=== PATIENT | female | born 1975 | race Caucasian/White ===

== ENCOUNTER 2016-08-28 20:03 | Emergency (ER) | payer OTHER ==
[~2016-08-28] VITALS: Ht 154.9 cm; Wt 52.2 kg
[~2016-08-28 20:03] MED LIST: ACET300T52 PO; ALEV220C2 PO; GABA-282 PO; XANA1TAB2 PO; ZANA2CAP PO
[2016-08-28] MEDS ORDERED: METHY10TA PO (20:45)
[2016-08-28] MEDS ORDERED: ZOLP10TA2 PO (20:45)
[2016-08-28] MEDS ORDERED: VALA500T PO (20:45)
[2016-08-28] MEDS ORDERED: NS 1,000 ML IV ONE (22:30)
[2016-08-28 22:59] LABS: BASO % 0.4 % (0.0-1.0); EOS # 0.2 K/mm3 (0.0-0.50); EOS % 2.1 % (0.0-3.0); LARGE UNSTAINED CELL # 0.2 K/mm3 (0.0-0.4); LYMPH # 3.2 K/mm3 (1.5-4.5); LYMPH % 36.4 % (24.0-44.0); MEAN CORPUSCULAR HEMOGLOBIN 30.1 pg (27.0-33.0); MEAN CORPUSCULAR HGB CONC 32.7 g/dl (32.0-36.5); MEAN CORPUSCULAR VOLUME 92.1 fl (80.0-96.0); MONO # 0.5 K/mm3 (0.0-0.8); MONO % 5.5 % (0.0-5.0); NEUTROPHILS # 4.5 K/mm3 (1.8-7.7); NEUTROPHILS % 53.7 % (36.0-66.0); PLATELET COUNT, AUTOMATED 271 k/mm3 (150-450); RED CELL DISTRIBUTION WIDTH 12.5 % (11.5-14.5); WHITE BLOOD COUNT 8.4 K/mm3 (4.0-10.0)
[2016-08-28 23:16] LABS: CONTROL LINE HCG INT CTR LINE PRESENT
[2016-08-28 23:20] LABS: MAGNESIUM LEVEL 2.2 MG/DL (1.8-2.4)
[2016-08-28 23:26] LABS: ALBUMIN 4.1 GM/DL (3.2-5.2); ALBUMIN/GLOBULIN RATIO 1.41 (1.00-1.93); ALKALINE PHOSPHATASE 47 U/L (45-117); ALT/SGPT 26 U/L (12-78); ANION GAP 6 MEQ/L (8-16); AST/SGOT 20 U/L (15-37); BILIRUBIN,DIRECT < 0.1 MG/DL (0.0-0.2); BILIRUBIN,TOTAL 0.3 MG/DL (0.2-1.0); BLOOD UREA NITROGEN 20 MG/DL (7-18); CALCIUM LEVEL 8.7 MG/DL (8.5-10.1); CARBON DIOXIDE LEVEL 26 MEQ/L (21-32); CHLORIDE LEVEL 108 MEQ/L (98-107); CREATININE FOR GFR 0.67 MG/DL (0.55-1.02); GLOMERULAR FILTRATION RATE > 60.0 (>58); GLUCOSE, FASTING 92 MG/DL (70-105); POTASSIUM SERUM 3.8 MEQ/L (3.5-5.1); SODIUM LEVEL 140 MEQ/L (136-145)
[2016-08-29 00:11] VITALS: BP 126/85
[2016-08-29 00:21] LABS: METHADONE URINE NEGATIVE (NEGATIVE)
--- NOTE | 2016-08-29 08:12 | REP ---
Portable chest, single AP view, patient sitting: Comparison is 06/17/2015. The lung coto are clear. The cardiac size is normal. The rosemary, mediastinum, and bony thorax are unremarkable. Impression: Negative portable chest. Signed by Nathan Sanchez MD 08/29/2016 08:04 A
--- NOTE | 2016-08-30 21:24 | ECGEPIP ---
Stationary ECG Study [facility] - ED Test Date: 2016-08-28 Pat Name: MARYLOU GHOSH Department: Room: - Gender: F Administrative Assistant Receptionist: fritz : 1975 Requested By: LEILA MARTIN Order Number: [id number] Reading MD: Sandra Watson Measurements Intervals [place] Rate: 62 P: 32 VA: 169 QRS: -30 QRSD: 99 T: 43 QT: 416 QTc: 424 Interpretive Statements SINUS RHYTHM BORDERLINE LEFT AXIS DEVIATION LOW VOLTAGE LIMB NO PRIOR FOR COMPARISON Electronically Signed On 08-30-2016 21:24:04 EDT by Sandra Watson
== END 2016-08-29 00:45 | disposition home or self-care (01) ==
LOC: M ED 21:05
DX: R42 Dizziness and giddiness (principal); R11.0 Nausea; G89.29 Other chronic pain; F17.210 Nicotine dependence, cigarettes, uncomplicated; Z82.49 Family history of ischemic heart disease and other diseases of the circulatory system; Z79.899 Other long term (current) drug therapy
CPT/HCPCS: 71010; 80048; 80076; 80306; 81001; 82550; 82553; 83735; 84443; 84703; 85025; 93005; 93041; 99284; G0480

== ENCOUNTER → 2016-08-30 | Outpatient (CLI) | payer OTHER ==
[~2016-08-30] MED LIST changes: +METHY10TA PO; +VALA500T PO; +ZOLP10TA2 PO
[2016-08-30 09:51] LABS: MEAN CORPUSCULAR HEMOGLOBIN 30.9 pg (27.0-33.0); MEAN CORPUSCULAR HGB CONC 33.4 g/dl (32.0-36.5); MEAN CORPUSCULAR VOLUME 92.5 fl (80.0-96.0); RED CELL DISTRIBUTION WIDTH 12.4 % (11.5-14.5); WHITE BLOOD COUNT 6.9 K/mm3 (4.0-10.0)
[2016-08-30 10:34] LABS: ALBUMIN 4.6 GM/DL (3.2-5.2); ALBUMIN/GLOBULIN RATIO 1.39 (1.00-1.93); ALKALINE PHOSPHATASE 47 U/L (45-117); ALT/SGPT 26 U/L (12-78); ANION GAP 7 MEQ/L (8-16); AST/SGOT 20 U/L (15-37); BILIRUBIN,TOTAL 0.4 MG/DL (0.2-1.0); BLOOD UREA NITROGEN 17 MG/DL (7-18); CALCIUM LEVEL 9.1 MG/DL (8.5-10.1); CARBON DIOXIDE LEVEL 26 MEQ/L (21-32); CHLORIDE LEVEL 107 MEQ/L (98-107); CHOLESTEROL LEVEL 217 MG/DL (<200); CREATININE FOR GFR 0.78 MG/DL (0.55-1.02); GLOMERULAR FILTRATION RATE > 60.0 (>58); GLUCOSE, FASTING 98 MG/DL (70-105); MAGNESIUM LEVEL 2.2 MG/DL (1.8-2.4); PERCENT SATURATION 34.8 % (13.2-37.4); SODIUM LEVEL 140 MEQ/L (136-145); THYROXINE (T4) 11.1 UG/DL (4.5-12.0); TOTAL IRON BINDING CAPACITY 336 UG/DL (250-450); TOTAL PROTEIN 7.9 GM/DL (6.4-8.2); TRIGLYCERIDES LEVEL 85 MG/DL (<150)
[2016-08-30 11:16] LABS: VITAMIN B12 LEVEL 411 PG/ML (247-911)
[2016-08-30 11:20] LABS: FOLATE > 24.0 NG/ML (>5.4)
== END ==
LOC: M LAB 08:46
PROVIDERS: ATTEND Family Medicine
DX: D64.9 Anemia, unspecified (principal)

== ENCOUNTER → 2016-09-19 | Outpatient (REF) | payer OTHER | LOC: M SFHCWAGY 09:12 | PROVIDERS: ATTEND Nurse Practitioner Family | DX: Z01.419 Encounter for gynecological examination (general) (routine) without abnormal findings (principal) ==

== ENCOUNTER → 2016-09-19 | Outpatient (CLI) | payer OTHER ==
--- NOTE | 2016-09-19 09:49 | REPMRS ---
Patient History The patient states she had a clinical breast exam in 08/2016. Patient is nulliparous. Family history of prostate cancer in father at age 50. Reductions of both breasts, 2008. Digital Woman Screen Mammo: September 19, 2016 - Exam #: [id number] Bilateral CC and MLO view(s) were taken. Technologist: Praveena Thomason, Technologist Prior study comparison: September 03, 2015, digital woman screen mammo performed at [facility]. August 31, 2014, digital woman screen mammo performed at [facility]. FINDINGS: The breast tissue is heterogeneously dense. This may lower the sensitivity of mammography. There has been no change in the appearance of the mammogram from the prior studies. There is a moderate amount of residual fibroglandular tissue which is fairly symmetric. There is no interval development of dominant mass, areas of architectural distortion, or clustered microcalcification typical of malignancy. ASSESSMENT: BI-RADS/ACR category 1 mammogram. Negative. Recommendation Routine screening mammogram in 1 year (for women over age 40). This mammogram was interpreted with the aid of an FDA-approved computer-aided dectection system. Electronically Signed By: Nathan Sousa MD 09/19/16 0949
== END ==
LOC: M WHC 08:29
PROVIDERS: ATTEND Nurse Practitioner Family
DX: Z12.31 Encounter for screening mammogram for malignant neoplasm of breast (principal)

== ENCOUNTER → 2016-09-25 | Outpatient (REF) | payer OTHER | LOC: M LAB REF 12:21 | PROVIDERS: ATTEND Physician Assistant | DX: N39.0 Urinary tract infection, site not specified (principal) ==

== ENCOUNTER → 2016-12-11 | Outpatient (CLI) | payer OTHER ==
[~2016-12-11] MED LIST changes: -VALA500T PO; +VALA500T2 PO
--- NOTE | 2016-12-11 14:57 | REP ---
CERVICAL SPINE SERIES: Eight views. HISTORY: Strain of muscle. Comparison study January 17, 2016. FINDINGS: The patient is status post ventral discectomy and fusion surgery at C5-6. There is straightening of the normal cervical lordosis. No other malalignment is seen. Vertebral body heights are preserved. Other disc spaces are unremarkable. No subluxation or instability is seen on flexion/extension views. Oblique views are unremarkable. AP and open mouth odontoid views show no abnormality. IMPRESSION: Status post ventral discectomy and fusion surgery C5-6. Otherwise negative. Signed by Roque Coffey MD 12/11/2016 04:25 P
== END ==
LOC: M WUC 13:13
PROVIDERS: ATTEND Physician Assistant
DX: S16.1XXA Strain of muscle, fascia and tendon at neck level, initial encounter (principal); X58.XXXA Exposure to other specified factors, initial encounter; Y92.89 Other specified places as the place of occurrence of the external cause; Y93.89 Activity, other specified; Y99.8 Other external cause status

== ENCOUNTER → 2017-01-23 | Outpatient (REF) | payer OTHER ==
[2017-01-23 16:19] LABS: FOLLICLE STIMULATING HORMONE 7.2 mIU/mL
== END ==
LOC: M SFHCWAGY 15:33
PROVIDERS: ATTEND Nurse Practitioner Family
DX: E28.2 Polycystic ovarian syndrome (principal); L68.0 Hirsutism

== ENCOUNTER → 2017-04-11 | Outpatient (REF) | payer OTHER | LOC: M LABDRAW1 13:22 | PROVIDERS: ATTEND Nurse Practitioner Family | DX: E28.2 Polycystic ovarian syndrome (principal) ==

== ENCOUNTER → 2017-06-08 | Outpatient (REF) | payer OTHER ==
[2017-06-08 18:04] LABS: CHLAMYDIA DNA AMPLIFICATION NEGATIVE (NEGATIVE); GC DNA AMPLIFICATION NEGATIVE (NEGATIVE)
== END ==
LOC: M SFHCWAGY 15:53
DX: Z11.3 Encounter for screening for infections with a predominantly sexual mode of transmission (principal)

== ENCOUNTER → 2017-06-11 | Outpatient (CLI) | payer OTHER | LOC: M WHC 14:26 | DX: Z11.3 Encounter for screening for infections with a predominantly sexual mode of transmission (principal) | CPT/HCPCS: 76830 ==

== ENCOUNTER 2017-08-03 10:29 | Day surgery (SDC) | payer OTHER ==
[2017-08-03] MEDS: NS 1,000 ML IV (10:45)
[2017-08-03] MEDS ORDERED: PROPOFOL 200 MG/20 ML VIAL As Ordered (13:24)
== END 2017-08-03 14:19 | disposition home or self-care (01) ==
LOC: M OPP 14:19
DX: R10.32 Left lower quadrant pain (principal); K59.00 Constipation, unspecified; R19.4 Change in bowel habit; K64.8 Other hemorrhoids; M54.89 Other dorsalgia; M54.2 Cervicalgia; F32.9 Major depressive disorder, single episode, unspecified; F41.9 Anxiety disorder, unspecified; F50.00 Anorexia nervosa, unspecified; R06.83 Snoring; F17.210 Nicotine dependence, cigarettes, uncomplicated; F12.10 Cannabis abuse, uncomplicated; Z79.899 Other long term (current) drug therapy; Z80.42 Family history of malignant neoplasm of prostate
CPT/HCPCS: 45378

== ENCOUNTER → 2017-10-09 | Outpatient (REF) | payer OTHER ==
[2017-10-10 13:43] LABS: CHLAMYDIA DNA AMPLIFICATION NEGATIVE (NEGATIVE); GC DNA AMPLIFICATION NEGATIVE (NEGATIVE)
== END ==
LOC: M SFHCWAGY 11:52
DX: Z11.3 Encounter for screening for infections with a predominantly sexual mode of transmission (principal)

== ENCOUNTER → 2017-10-31 | Outpatient (REF) | payer OTHER, MEDICAID ==
[2017-10-31 19:00] LABS: TOTAL 25(OH) VITAMIN D 41.8 NG/ML (30.0-100.0)
[2017-10-31 19:01] LABS: FOLATE 13.5 NG/ML (>5.4); VITAMIN B12 LEVEL 606 PG/ML (247-911)
[2017-10-31 19:05] LABS: ALBUMIN 4.1 GM/DL (3.2-5.2); ALBUMIN/GLOBULIN RATIO 1.41 (1.00-1.93); ALKALINE PHOSPHATASE 50 U/L (45-117); ALT/SGPT 24 U/L (12-78); ANION GAP 7 MEQ/L (8-16); AST/SGOT 14 U/L (7-37); BILIRUBIN,TOTAL 0.3 MG/DL (0.2-1.0); BLOOD UREA NITROGEN 15 MG/DL (7-18); CALCIUM LEVEL 8.3 MG/DL (8.5-10.1); CARBON DIOXIDE LEVEL 27 MEQ/L (21-32); CHLORIDE LEVEL 106 MEQ/L (98-107); CREATININE FOR GFR 0.92 MG/DL (0.55-1.30); FERRITIN 79 NG/ML (8-252); GLOMERULAR FILTRATION RATE > 60.0 (>58); GLUCOSE, FASTING 181 MG/DL (70-100); IRON (FE) 53 UG/DL (50-170); MAGNESIUM LEVEL 1.9 MG/DL (1.8-2.4); POTASSIUM SERUM 3.6 MEQ/L (3.5-5.1); SODIUM LEVEL 140 MEQ/L (136-145); THYROID STIMULATING HORMONE 0.704 uIU/ML (0.358-3.740)
[2017-11-03 00:08] LABS: TISSUE TRANSGLUTAMINASE IgA <2 U/mL (0-3)
== END ==
LOC: M LAB REF 17:36
DX: R63.0 Anorexia (principal)

== ENCOUNTER → 2018-01-10 | Outpatient (REF) | payer OTHER | LOC: M SFHCWAGY 10:47 | DX: Z12.4 Encounter for screening for malignant neoplasm of cervix (principal) | CPT/HCPCS: 88142 ==

== ENCOUNTER → 2018-09-10 | Outpatient (CLI) | payer OTHER ==
[~2018-09-10] MED LIST changes: +ALEV220T26 PO; +DIAZPOW PO; -GABA-282 PO; +GABA-843 PO; +METH-1022 PO; -METHY10TA PO; -VALA500T2 PO; +VALA500T5 PO
--- NOTE | 2018-09-10 14:46 | REP ---
CERVICAL SPINE, NINE VIEWS: HISTORY: Strain. COMPARISON: 12/11/2016 The cervical spine is visualized from C1-2 to C6-7 level in the lateral radiographs. There is no acute fracture or subluxation. The C4-5 intervertebral disc is decreased in height consistent with disc degeneration. The right neural foramina are patent. The left neural foramina are not well seen. IMPRESSION: The patient is status post C5-6 anterior spinal fusion. There is anatomic alignment. Electronically Signed by Daniel Patton MD 09/10/2018 02:47 P
== END ==
LOC: M WUC 12:37
PROVIDERS: ATTEND Physician Assistant
DX: S16.1XXA Strain of muscle, fascia and tendon at neck level, initial encounter (principal); X58.XXXA Exposure to other specified factors, initial encounter; Y92.89 Other specified places as the place of occurrence of the external cause; Z98.1 Arthrodesis status

== ENCOUNTER → 2018-10-18 | Outpatient (REF) | payer OTHER ==
[2018-10-18 15:05] LABS: CHLAMYDIA DNA AMPLIFICATION NEGATIVE (NEGATIVE); GC DNA AMPLIFICATION NEGATIVE (NEGATIVE)
== END ==
LOC: M SFHCWAGY 12:58
PROVIDERS: ATTEND Nurse Practitioner Family
DX: N73.0 Acute parametritis and pelvic cellulitis (principal)

== ENCOUNTER → 2018-10-28 | Outpatient (CLI) | payer OTHER ==
--- NOTE | 2018-10-29 06:17 | REP ---
Clinical: Pelvic pain and abnormal uterine bleeding . Technique: Transabdominal pelvic ultrasound followed by transvaginal examination for better evaluation of the endometrium and adnexa with color Doppler evaluation of the ovaries. Findings: Bladder is unremarkable and measures 4.2 x 6.7 x 4.4 cm . Normal anteverted uterus measures 8.8 x 3.5 x 4.4 cm . The endometrial complex measures 10.4 mm thickness. No discrete uterine or endometrial abnormalities are appreciated. Bilateral ovaries are normal in appearance and vascularity without evidence for torsion. Right ovary measures 3.4 x 1.8 x 1.5 cm with a 1.1 x 0.7 x 0.6 cm hyperechoic area; R I = 0.49 . Left ovary measures 2.8 x 1.5 x 1.3 cm ; R I = 0.46 . No pelvic fluid or adnexal mass lesion . Impression: 1. Subtle nonspecific hyperechoic area within the right ovary. Consider reevaluation in 4-6 weeks. 2. Otherwise normal pelvic ultrasound.
== END ==
LOC: M WHC 08:53
PROVIDERS: ATTEND Nurse Practitioner Family
DX: R10.2 Pelvic and perineal pain (principal); N93.9 Abnormal uterine and vaginal bleeding, unspecified; N83.8 Other noninflammatory disorders of ovary, fallopian tube and broad ligament

== ENCOUNTER → 2018-12-12 | Outpatient (CLI) | payer OTHER ==
--- NOTE | 2018-12-12 13:05 | REP ---
PELVIC ULTRASOUND: Real-time sonographic evaluation of the pelvis performed utilizing transabdominal and endovaginal technique and compared to multiple prior exams including 10/28/2018, 06/11/2017, and 09/03/2015. Bladder measures 4.9 x 7.3 x 2.4 cm. Uterus measures 8.3 x 3.8 x 5.0 cm. Endometrial thickness is 12 mm. Focal oval hyperechoic area in the endometrial echo complex measures 1.5 x 0.8 x 1.5 cm, with internal blood flow, possibly representing an endometrial polyp. Right ovary measures 3.1 x 1.8 x 1.9 cm with no torsion, resistive index 0.55. Echogenic area in the right ovary measures 9 x 11 x 5 mm unchanged since the 2016 exam. This may represent a small endometrioma. Right ovary is mildly enlarged 4.0 x 2.0 x 2.1 cm. There is a complex heterogeneous cystic structure in the left ovary probably representing a complex dominant follicle 1.8 x 1.7 x 1.9 cm. This is new. There is no torsion of the left ovary with resistive index 0.46. There is no significant free fluid. IMPRESSION: Suspect endometrial polyp 1.5 cm in diameter. Stable echogenic area in the right ovary with maximum diameter of 1.1 cm. This is unchanged since 2016 and may represent a small endometrioma. Complex heterogeneous cystic structure left ovary probably represents a complex dominant follicle, maximum diameter 1.9 cm.
== END ==
LOC: M WHC 10:08
PROVIDERS: ATTEND Nurse Practitioner Family
DX: N83.202 Unspecified ovarian cyst, left side (principal)

== ENCOUNTER → 2019-01-17 | Outpatient (REF) | payer OTHER ==
[2019-01-21 14:29] LABS: HPV HYBRID CAPTURE II Negative (Negative)
== END ==
LOC: M SFHCWAGY 10:42
PROVIDERS: ATTEND Nurse Practitioner Family
DX: Z12.4 Encounter for screening for malignant neoplasm of cervix (principal)

== ENCOUNTER → 2019-01-20 | Outpatient (CLI) | payer OTHER ==
--- NOTE | 2019-01-20 12:10 | REPMRS ---
Patient History The patient states she had a clinical breast exam in 11/2018. Patient is nulliparous. Family history of prostate cancer at age 50 in father. Implants in both breasts, November 09, 2017. Reductions of both breasts, 2007. 3D TOMOSYNTHESIS WAS PERFORMED. The Bibi Mayo lifetime risk for breast cancer is 14.0%. Digital Woman Screen Mammo: January 20, 2019 - Exam #: [id number] Bilateral CC and MLO view(s) were taken. Technologist: Edna Huntley, Technologist Prior study comparison: October 31, 2017, bilateral digital mammo screening bilat, performed at [facility]. September 19, 2016, digital woman screen mammo performed at [facility]. FINDINGS: The breast tissue is heterogeneously dense. This may lower the sensitivity of mammography. There has been no change in the appearance of the mammogram from the prior studies. There is a moderate amount of residual fibroglandular tissue which is fairly symmetric. There is no interval development of dominant mass, areas of architectural distortion, or clustered microcalcification typical of malignancy. Assessment: BI-RADS/ACR category 1 mammogram. Negative Mammogram. Recommendation Routine screening mammogram in 1 year (for women over age 40). This mammogram was interpreted with the aid of an FDA-approved computer-aided dectection system. Electronically Signed By: Nathan Sousa MD 01/20/19 3528
== END ==
LOC: M WHC 10:57
PROVIDERS: ATTEND Nurse Practitioner Family
DX: Z12.31 Encounter for screening mammogram for malignant neoplasm of breast (principal); Z98.82 Breast implant status

== ENCOUNTER → 2019-03-09 | Outpatient (CLI) | payer OTHER ==
[~2019-03-09] MED LIST changes: +EFFE75CA2 PO; +LEXA1TAB PO; +TRAZ-189 PO
[2019-03-09 17:56] LABS: BASO # 0.1 10^3/uL (0.0-0.2); BASO % 0.8 % (0.0-1.0); EOS # 0.1 10^3/uL (0.0-0.5); EOS % 1.8 % (0.0-3.0); HEMATOCRIT 43.5 % (36.0-47.0); HEMOGLOBIN 14.1 g/dl (12.0-15.5); LYMPH # 1.8 10^3/uL (1.5-5.0); LYMPH % 30.2 % (24.0-44.0); MEAN CORPUSCULAR HEMOGLOBIN 32.9 pg (27.0-33.0); MEAN CORPUSCULAR HGB CONC 32.4 g/dl (32.0-36.5); MEAN CORPUSCULAR VOLUME 101.4 fl (80.0-96.0); MONO # 0.5 10^3/uL (0.0-0.8); NEUTROPHILS # 3.5 10^3/uL (1.5-8.5); NEUTROPHILS % 57.9 % (36.0-66.0); PLATELET COUNT, AUTOMATED 259 10^3/uL (150-450); RED BLOOD COUNT 4.29 10^6/uL (4.00-5.40)
[2019-03-09 18:02] LABS: ALBUMIN 3.5 GM/DL (3.2-5.2); ALT/SGPT 24 U/L (12-78); BILIRUBIN,TOTAL 0.2 MG/DL (0.2-1.0); BLOOD UREA NITROGEN 14 MG/DL (7-18); CALCIUM LEVEL 8.1 MG/DL (8.5-10.1); CARBON DIOXIDE LEVEL 28 MEQ/L (21-32); CHLORIDE LEVEL 108 MEQ/L (98-107); CREATININE FOR GFR 0.88 MG/DL (0.55-1.30); GLOMERULAR FILTRATION RATE > 60.0 (>58); GLUCOSE, FASTING 138 MG/DL (70-100); POTASSIUM SERUM 4.1 MEQ/L (3.5-5.1); SODIUM LEVEL 141 MEQ/L (136-145); TOTAL PROTEIN 6.1 GM/DL (6.4-8.2)
== END ==
LOC: M WUC 09:29
PROVIDERS: ATTEND Physician Assistant
DX: R10.814 Left lower quadrant abdominal tenderness (principal)

== ENCOUNTER 2019-03-19 15:12 | Day surgery (SDC) | payer OTHER ==
[~2019-03-19] VITALS: Ht 154.9 cm; Wt 54.9 kg
[~2019-03-19 15:12] MED LIST changes: +LR 1,000 ML IV ONE
[2019-03-19 16:09] LABS: HEMATOCRIT 45.6 % (36.0-47.0); HEMOGLOBIN 15.1 g/dl (12.0-15.5); MEAN CORPUSCULAR HEMOGLOBIN 32.4 pg (27.0-33.0); MEAN CORPUSCULAR HGB CONC 33.1 g/dl (32.0-36.5); MEAN CORPUSCULAR VOLUME 97.9 fl (80.0-96.0); PLATELET COUNT, AUTOMATED 318 10^3/uL (150-450); RED BLOOD COUNT 4.66 10^6/uL (4.00-5.40); WHITE BLOOD COUNT 8.1 10^3/uL (4.0-10.0)
[2019-03-19] MEDS ORDERED: LIDOCAINE 2% INJ 100 MG/5 ML SDV (FOR ANES.) As Ordered ONE (18:01)
[2019-03-19] MEDS ORDERED: dexameTHASONE 4 MG/ML 1ML VIAL (J1100) As Ordered ONE (18:01)
[2019-03-19] MEDS ORDERED: ONDANSETRON 4MG/2ML VIAL (J2405) As Ordered ONE ×2 (18:01→19:40)
[2019-03-19] MEDS ORDERED: PROPOFOL 200 MG/20 ML VIAL As Ordered ONE (18:01)
[2019-03-19] MEDS ORDERED: MIDAZOLAM INJ 2 MG/2 ML VIAL (J2250) As Ordered ONE (18:02)
[2019-03-19] MEDS ORDERED: fentaNYL 100 MCG/2 ML INJECTION (J3010) As Ordered ONE ×2 (18:02→19:40)
[2019-03-19] MEDS ORDERED: KETOROLAC 60 MG/2 ML VIAL (J1885) As Ordered ONE (19:17)
[2019-03-19] MEDS ORDERED: PERCOCET 5MG/325MG TAB As Ordered ONE (19:40)
[2019-03-19] MEDS: PERCOCET 5MG/325MG TAB PO PRN ×2 (19:42→20:14)
[2019-03-19] MEDS: fentaNYL 100 MCG/2 ML INJECTION (J3010) IV PRN ×4 (19:42→20:20)
[2019-03-19] MEDS ORDERED: LR 1,000 ML IV SCH ×2 (20:00→20:15)
[2019-03-19] MEDS ORDERED: METOCLOPRAMIDE INJ 10MG/2ML VIAL (J2765) IV PRN (20:00)
[2019-03-19] MEDS ORDERED: ONDANSETRON 4MG/2ML VIAL (J2405) IV PRN (20:00)
[2019-03-19] MEDS ORDERED: ACETAMINOPHEN 500 MG TAB PO ONE (20:15)
[2019-03-19 20:40] VITALS: BP 134/83
--- NOTE | 2019-03-20 08:58 | RO ---
DATE OF PROCEDURE: 03/19/2019 PREOPERATIVE DIAGNOSIS: Abnormal uterine bleeding, endometrial polyps. POSTOPERATIVE DIAGNOSIS: Abnormal uterine bleeding, endometrial polyps. PROCEDURE: Hysteroscopy, D and C, polypectomy. SURGEON: Dr. Daniel Patricia ANESTHESIA: General endotracheal. ESTIMATED BLOOD LOSS: 50 mL. FINDINGS: Two moderate large endometrial polyps, one attached in the anterior fundus and the other attached in the right lateral lower uterine segment. Otherwise normal appearing endometrial cavity. OPERATIVE SUMMARY: The patient was taken to the operating room where general endotracheal anesthesia was induced. She was prepped and draped in the sterile fashion in the dorsal lithotomy position. Speculum was placed in the vagina. The anterior lip of the cervix was grasped with a tenaculum. The cervix was dilated with taper dilators. Diagnostic hysteroscope using normal saline. Visualization of the endometrial cavity revealed the findings noted above. Forceps were inserted and used to grasp endometrial polyps. The polymorphonuclear leukocytes were removed in their entirely. Sharp curettage was performed. The hysteroscope confirmed that there were no further endometrial irregularities. All instruments were removed and sponge and instruments counts were correct.
== END 2019-03-19 20:55 | disposition home or self-care (01) ==
LOC: M SDC 15:12
PROVIDERS: ATTEND Specialist
DX: N93.9 Abnormal uterine and vaginal bleeding, unspecified (principal); N84.0 Polyp of corpus uteri; F41.9 Anxiety disorder, unspecified; F32.9 Major depressive disorder, single episode, unspecified; F12.10 Cannabis abuse, uncomplicated; F17.218 Nicotine dependence, cigarettes, with other nicotine-induced disorders; Z79.899 Other long term (current) drug therapy
CPT/HCPCS: 36415; 58558; 85027; 88305; J1100; J1885; J2250; J2405; J3010

== ENCOUNTER 2019-08-05 08:58 | Day surgery (SDC) | payer OTHER ==
[~2019-08-05] VITALS: Ht 156.2 cm; Wt 56.6 kg
[~2019-08-05 08:58] MED LIST changes: +IBUP-1022 PO; -LR 1,000 ML IV ONE; +OXYC1TAB23 PO
[2019-08-05 09:27] LABS: HEMATOCRIT 43.5 % (36.0-47.0); HEMOGLOBIN 14.3 g/dl (12.0-15.5); MEAN CORPUSCULAR HEMOGLOBIN 32.2 pg (27.0-33.0); MEAN CORPUSCULAR HGB CONC 32.9 g/dl (32.0-36.5); PLATELET COUNT, AUTOMATED 343 10^3/uL (150-450); RED BLOOD COUNT 4.44 10^6/uL (4.00-5.40); WHITE BLOOD COUNT 6.8 10^3/uL (4.0-10.0)
[2019-08-05] MEDS ORDERED: LIDOCAINE 2% INJ 100 MG/5 ML SDV (FOR ANES.) As Ordered ONE ×2 (09:44→10:46)
[2019-08-05] MEDS ORDERED: dexameTHASONE 4 MG/ML 1ML VIAL (J1100) As Ordered ONE ×2 (09:44→10:46)
[2019-08-05] MEDS ORDERED: ONDANSETRON 4MG/2ML VIAL (J2405) As Ordered ONE ×2 (09:44→10:46)
[2019-08-05] MEDS ORDERED: propofoL 200 MG/20 ML VIAL As Ordered ONE ×2 (09:44→10:46)
[2019-08-05] MEDS ORDERED: KETOROLAC 60 MG/2 ML VIAL (J1885) As Ordered ONE ×2 (09:44→10:46)
[2019-08-05] MEDS ORDERED: ceFAZolin SOD 2 GM in IV 1 EA IV ONE (10:00)
[2019-08-05] MEDS ORDERED: fentaNYL 100 MCG/2 ML INJECTION (J3010) As Ordered ONE ×3 (10:47→12:48)
[2019-08-05] MEDS ORDERED: MIDAZOLAM INJ 2 MG/2 ML VIAL (J2250) As Ordered ONE (10:47)
[2019-08-05] MEDS ORDERED: VASOPRESSIN INJ 20 UNITS/ML VIAL As Ordered ONE (11:13)
[2019-08-05] MEDS ORDERED: ePHEDrine SULFATE 25 MG/5 ML(5MG/ML) SYRINGE As Ordered ONE (11:51)
[2019-08-05] MEDS ORDERED: ROCURONIUM BROMIDE 50 MG/5 ML VIAL As Ordered ONE (11:53)
[2019-08-05] MEDS ORDERED: BUPIVACAINE HCL 0.25% 30 ML VIAL As Ordered ONE (11:59)
[2019-08-05] MEDS ORDERED: ACETAMINOPHEN 1000MG 100ML IV BTL (OFIRMEV) (J0131 PER 10MG) As Ordered ONE (12:08)
[2019-08-05] MEDS ORDERED: SUGAMMADEX SODIUM 500 MG/5 ML VIAL (BRIDION) As Ordered ONE (12:20)
[2019-08-05] MEDS ORDERED: ONDANSETRON 4MG/2ML VIAL (J2405) IV PRN (13:45)
[2019-08-05] MEDS ORDERED: LR 1,000 ML IV SCH (13:45)
[2019-08-05] MEDS ORDERED: fentaNYL 100 MCG/2 ML INJECTION (J3010) IV PRN (13:45)
[2019-08-05] MEDS ORDERED: oxyCODONE 5MG TAB As Ordered ONE (14:13)
[2019-08-05] MEDS ORDERED: oxyCODONE 5MG TAB PO PRN (14:30)
[2019-08-05 16:00] VITALS: BP 112/77
[2019-08-05] MEDS ORDERED: OXYC1TAB23 PO (16:12)
[2019-08-05] MEDS ORDERED: IBUP-1022 PO (16:14)
--- NOTE | 2019-08-06 15:02 | RO ---
DATE OF OPERATION: 08/05/2019 PREOPERATIVE DIAGNOSIS: Vaginal cuff dehiscence. POSTOPERATIVE DIAGNOSIS: Vaginal cuff dehiscence. PROCEDURE: Diagnostic laparoscopy with repair of vaginal cuff dehiscence. SURGEON: Daniel Patricia MD GLUE LINE OPERATOR: ANESTHESIA: General endotracheal. ESTIMATED BLOOD LOSS: 50 mL. URINE OUTPUT: 200 mL. FINDINGS: Complete vaginal cuff dehiscence. Epiploica of the sigmoid colon prolapsing through the vaginal cuff opening. Omental adhesions to the vaginal cuff opening. No evidence of bowel protruding through the dehiscence. DESCRIPTION OF PROCEDURE: Operative summary: Patient taken to the operating room where general endotracheal anesthesia was induced. She was prepped and draped in a sterile fashion in the dorsal lithotomy position. Dan catheter was placed. Speculum was placed in the vagina. A necrotic-appearing mass appeared to be protruding through the vaginal opening. This mass could not be dissected off vaginally. It was unclear if the mass represented bowel or bladder. Cystoscopy was performed using a 7-degree cystoscope, and the bladder appeared normal. Decision made to perform laparoscopy to assess what was protruding through the vaginal opening. Periumbilical incision made with a scalpel. A Veress needle was placed through the incision. Pneumoperitoneum was created. The Veress needle was removed. A 5-mm trocar was placed through this incision using Visiport. A 5-mm scope with camera was used to visualize the pelvis. Two 5-mm suprapubic ports were placed. The patient was placed in Trendelenburg position. Adhesions to the vaginal cuff were taken down sharply using Harmonic scalpel as well as a grasping instrument. The vaginal opening was completely freed. Omental adhesions to the vaginal cuff were taken down sharply. The necrotic mass appearing in the vagina appeared to be epiploica from the sigmoid colon. Colon was examined thoroughly. Dr. Nathan Lawson from general surgery was consulted intraoperatively to give opinion about the bowel. He concurred that it appeared just to be necrotic epiploica and did not need to be removed. As a precaution, a ridged sigmoidoscope was placed in the rectum. Fluid was placed in the pelvis. Air was instilled into the rectum. There was no evidence of perforation to the sigmoid colon. Sigmoidoscope was removed. Pneumoperitoneum was released. All instruments removed. Skin was closed with #4-0 Monocryl. Surgeon then returned to the vagina. Speculum was placed. The anterior-posterior edges of the vagina were grasped with an Allis clamp. #2-0 Vicryl was placed in a running fashion in the vaginal cuff. Vaginal cuff was closed horizontally in its entirety. Good hemostasis was noted. All instruments removed. Sponge, instrument, and needle counts were correct. Patient was extubated and went to recovery room in stable condition.
== END 2019-08-05 16:34 | disposition home or self-care (01) ==
LOC: M SDC 08:58
PROVIDERS: ATTEND Specialist
DX: T81.32XA Disruption of internal operation (surgical) wound, not elsewhere classified, initial encounter (principal); Y76.3 Surgical instruments, materials and obstetric and gynecological devices (including sutures) associated with adverse incidents; E28.2 Polycystic ovarian syndrome; F32.9 Major depressive disorder, single episode, unspecified; F41.9 Anxiety disorder, unspecified; F50.9 Eating disorder, unspecified; F17.210 Nicotine dependence, cigarettes, uncomplicated; Z79.899 Other long term (current) drug therapy
CPT/HCPCS: 36415; 57425; 85027; J0131; J0690; J1100; J1885; J2250; J2405; J3010

== ENCOUNTER → 2019-11-12 | Outpatient (CLI) | payer OTHER ==
[~2019-11-12] MED LIST changes: +GABA-282 PO; -GABA-843 PO
--- NOTE | 2019-11-12 11:43 | REP ---
Right upper quadrant sonography: History: Abdominal pain and bloating. Comparison study: No comparison study. Findings: Scanning through the right upper quadrant of the abdomen demonstrates a normal sized, thin-walled gallbladder without evidence of stone or polyp. Common bile duct is normal measuring 0.5 cm in greatest diameter. No focal liver lesion is seen. Liver size is normal. No pancreatic abnormality is observed. No right renal abnormality is seen. There is no evidence of ascites. The right kidney measures 9.8 x 4.7 x 4 point a cm. Impression: Negative right upper quadrant sonography. Electronically Signed by Roque Coffey MD 11/12/2019 11:35 A
--- NOTE | 2019-11-12 13:47 | REP ---
REASON: Left lower quadrant pain. The latest prior for comparison is 12/12/2018. Since the last exam, the patient has undergone hysterectomy with bilateral ovarian preservation. Transvesical and transvaginal imaging was obtained. The right ovary measures 2.6 x 3.8 x 2 cm. Once again, there is a small echogenic focus seen in the right ovary measuring 1.3 cm in its greatest dimension status quo. This is unchanged and likely benign. Left ovary measures 2.3 x 1.8 x 1.5 cm. There is no significant change from the prior exam. There is a 1.5 cm sized likely resolving hemorrhagic follicle. There is no free fluid. Urinary bladder measures approximately 8 x 8 x 9 cm. IMPRESSION: No significant change from the prior exam other than hysterectomy.
== END ==
LOC: M WHC 08:59
PROVIDERS: ATTEND Family Medicine
DX: R63.0 Anorexia (principal); R10.32 Left lower quadrant pain; R14.0 Abdominal distension (gaseous); Z90.710 Acquired absence of both cervix and uterus

== ENCOUNTER → 2020-05-31 | Outpatient (REF) | payer OTHER ==
[~2020-05-31] MED LIST changes: -GABA-282 PO; +GABA-843 PO
[2020-05-31 17:07] LABS: BLOOD UREA NITROGEN 16 MG/DL (7-18); CALCIUM LEVEL 9.2 MG/DL (8.5-10.1); CARBON DIOXIDE LEVEL 31 MEQ/L (21-32); CHLORIDE LEVEL 109 MEQ/L (98-107); CREATININE FOR GFR 1.01 MG/DL (0.55-1.30); GLOMERULAR FILTRATION RATE > 60.0 (>58); GLUCOSE, FASTING 117 MG/DL (70-100); MAGNESIUM LEVEL 2.1 MG/DL (1.8-2.4); POTASSIUM SERUM 4.5 MEQ/L (3.5-5.1); SODIUM LEVEL 143 MEQ/L (136-145)
== END ==
LOC: M LAB REF 15:46
PROVIDERS: ATTEND Physician Assistant
DX: G25.81 Restless legs syndrome (principal)

== ENCOUNTER → 2020-06-24 | Outpatient (CLI) | payer OTHER ==
[~2020-06-24] MED LIST changes: +GABA-282 PO; -GABA-843 PO
--- NOTE | 2020-06-24 11:30 | REP ---
INDICATION: R21 SUSPICIOUS RASH RT BREAST,S/P BREAST AUGEMENTATION 3 YR. COMPARISON: Comparison mammography 20 January 2019.. TECHNIQUE: Whole breast, right breast sonography. FINDINGS: Scanning in the area the patient's redness in the 9 o'clock position of the right breast shows no focal abnormality. Normal fibroglandular texture is seen superficial to intact augmentation implant margins. However, away from the site of the skin redness, at 4 o'clock position in the right breast, 6 cm from nipple there is a hypoechoic nodule measuring 8 x 15 x 4 mm. It is long axis is parallel to the skin and is immediately superficial to the implant margin. Scanning in the axillary tail region demonstrates normal 9 mm a lymph node. No cortical thickening is seen. No adenopathy noted. IMPRESSION: In the medial aspect of the right breast at the 4 o'clock, there is a hypoechoic solid nodule 1.5 cm in greatest diameter. BI-RADS category 4 suspicious right breast ultrasound findings. No abnormality is noted in the tissue at the area of the skin discoloration at 9 o'clock. Ultrasound-guided needle biopsy of the 4 o'clock lesion should be considered. <Electronically signed by Colton Coffey > 06/24/20 1126
== END ==
LOC: M WHC 08:58
PROVIDERS: ATTEND Physician Assistant
DX: R92.8 Other abnormal and inconclusive findings on diagnostic imaging of breast (principal); R21 Rash and other nonspecific skin eruption; N63.15 Unspecified lump in the right breast, overlapping quadrants

== ENCOUNTER → 2020-06-28 | Outpatient (REF) | payer OTHER ==
[2020-06-28 16:02] LABS: BASO # 0.1 10^3/uL (0.0-0.2); BASO % 0.6 % (0.0-1.0); EOS # 0.1 10^3/uL (0.0-0.5); EOS % 1.3 % (0.0-3.0); HEMATOCRIT 44.6 % (36.0-47.0); HEMOGLOBIN 14.5 g/dl (12.0-15.5); LYMPH # 2.1 10^3/uL (1.5-5.0); MEAN CORPUSCULAR HEMOGLOBIN 32.3 pg (27.0-33.0); MEAN CORPUSCULAR HGB CONC 32.5 g/dl (32.0-36.5); MEAN CORPUSCULAR VOLUME 99.3 fl (80.0-96.0); MONO # 0.6 10^3/uL (0.0-0.8); MONO % 7.6 % (0.0-5.0); NEUTROPHILS # 4.9 10^3/uL (1.5-8.5); NEUTROPHILS % 63.2 % (36.0-66.0); PLATELET COUNT, AUTOMATED 315 10^3/uL (150-450); RED BLOOD COUNT 4.49 10^6/uL (4.00-5.40); WHITE BLOOD COUNT 7.8 10^3/uL (4.0-10.0)
[2020-06-28 16:37] LABS: ALT/SGPT 32 U/L (12-78); BILIRUBIN,TOTAL 0.1 MG/DL (0.2-1.0); BLOOD UREA NITROGEN 19 MG/DL (7-18); CALCIUM LEVEL 8.9 MG/DL (8.5-10.1); CARBON DIOXIDE LEVEL 28 MEQ/L (21-32); CHLORIDE LEVEL 106 MEQ/L (98-107); GLOMERULAR FILTRATION RATE > 60.0 (>58); GLUCOSE, FASTING 109 MG/DL (70-100); MAGNESIUM LEVEL 2.2 MG/DL (1.8-2.4); PHOSPHORUS LEVEL 2.7 MG/DL (2.5-4.9); POTASSIUM SERUM 4.5 MEQ/L (3.5-5.1); SODIUM LEVEL 143 MEQ/L (136-145); TOTAL PROTEIN 6.8 GM/DL (6.4-8.2)
== END ==
LOC: M LAB REF 15:40
PROVIDERS: ATTEND Physician Assistant
DX: F50.00 Anorexia nervosa, unspecified (principal)

== ENCOUNTER → 2020-07-02 | Outpatient (CLI) | payer OTHER ==
--- NOTE | 2020-07-02 16:50 | REPMRS ---
Patient History The patient states she had a clinical breast exam in 06/2020. Patient is nulliparous. Family history of prostate cancer at age 50 in father. Implants in both breasts, November 09, 2017. Reductions of both breasts, 2007. No Hormone Replacement Therapy Indicated problem(s): right breast skin changes to breast for 1 weeks. Patient states she had a rash that is currently going away about a week ago, [place] [facility] u/s Dr. Smith requested bilateral mammogram as well. Diagnostic Bilateral Mammo: July 02, 2020 - Exam #: [id number] Bilateral CC and MLO view(s) were taken. Technologist: Praveena Thomason, Technologist Prior study comparison: January 20, 2019, bilateral digital woman screen mammo performed at [facility]. October 31, 2017, bilateral digital mammo screening bilat, performed at [facility]. FINDINGS: The breast tissue is extremely dense which could obscure a lesion on mammography. The visualized implant margins are smooth. The Volpara volumetric breast density category is: D. Breast parenchymal density pattern is essentially symmetric. No dominant mass, grouped microcalcification, or architectural distortion is evident on either side. 3-D tomosynthesis shows no additional findings. No significant changes when compared with prior studies. Assessment: BI-RADS/ACR category 2 mammogram. Benign Findings. Recommendation Routine screening mammogram of both breasts in 1 year (for women over age 40). This patient's [facility] Lifetime Breast Cancer RIsk is estimated at 13.7 %. This mammogram was interpreted with the aid of an FDA-approved computer-aided dectection system. Electronically Signed By: Colton Coffey MD 07/02/20 [id number]
== END ==
LOC: M WHC 16:05
PROVIDERS: ATTEND Surgery
DX: R92.8 Other abnormal and inconclusive findings on diagnostic imaging of breast (principal); Z98.82 Breast implant status
CPT/HCPCS: 77066; G0279

== ENCOUNTER → 2020-08-25 | Outpatient (CLI) | payer OTHER ==
[~2020-08-25] MED LIST changes: +DICY10CA13 PO; +VITMTA PO
[2020-08-25 14:37] VITALS: BP 120/82
--- NOTE | 2020-08-25 16:45 | REP ---
INDICATION: N63.10 RIGHT BREAST MASS/US GUIDED BX. COMPARISON: 06/24/2020. TECHNIQUE: Real-time sonographic evaluation of right breast performed. FINDINGS: Ultrasound guidance was provided for Dr. Smith who performed ultrasound-guided biopsy of an oval 1.5 cm nodule at the 4 o'clock position. The biopsy needle appears to be within the nodule. IMPRESSION: Ultrasound guidance was provided for Dr. Smith who performed ultrasound-guided biopsy of an oval 1.5 cm nodule at the 4 o'clock position. RECOMMENDATION: Clinical follow-up. <Electronically signed by Nathan Sousa > 08/25/20 0494
--- NOTE | 2020-08-25 16:46 | REP ---
INDICATION: US GUIDED BX/N63.10 R BREAST MASS/CK CLIP PLACEMENT. COMPARISON: 07/02/2020. TECHNIQUE: ML and CC views right breast. FINDINGS: Following ultrasound-guided biopsy of a nodule 4 o'clock right breast, mammographic images show a biopsy clip inferomedially in the right breast. IMPRESSION: Biopsy clip visualized inferomedial right breast. RECOMMENDATION: Clinical follow-up. <Electronically signed by Nathan Sousa > 08/25/20 [id number]
--- NOTE | 2020-08-26 20:06 | ROOPDOC ---
[facility] Report Of Operation Report of Operation DATE OF PROCEDURE: 08/25/20 DIAGNOSIS: right breast suspicious lesion PROCEDURE: ultrasound guided biopsy of the right breast suspicious lesion with clip placement SURGEON: Rhea Pablo BLOOD LOSS: minimal COMPLICATIONS: none Lidocaine 1% LOT [id number] Expiration 04/2021 Sodium Bicarbonate 8.4% LOT [id number] Expiration 06/2021 Hydromark clip LOT [id number] 03/2023 SHAPE : 3 Bx device: TEMNO 18G x 20 cm LOT [id number] Expiration 04/2024 Bx device: BARD [id number] x10 cm LOT [id number] Expiration 05/2021 Informed consent was obtained. The most common risk and possible complications including bleeding, hematoma, bruising, infection, injury to surrounding structures, including implant, were explained to the patient and the patient expressed understanding. Patient was placed on the bed in the supine position. Appropriate time out was done stating patients name, date of , and the procedure to be performed. The right breast was prepped and draped in the usual fashion. The ultrasound was used to confirm the location of the lesion in the right breast at 4:00 anterior to the implant. Plain Lidocaine 1% and 8.4% sodium bicarbonate 10:1 mix was used to anesthetize the skin, the biopsy site and tissues along the anticipated biopsy tract. Small skin incision was made with blade number 11. Temno 18G cannula with introducer was inserted through the incision and advanced under the ultrasound guidance to position immediately adjacent to the suspicious lesion at 4:00 and parallel to the implant to avoid injury. Next, the introduc er was removed and Temno 18G biopsy device was places in the cannula. Pre-biopsy imaging, and post-biopsy imaging were captured. Three attempts were done to biopsy the nodule which appeared dense and did not allow biopsy device to penetrate fully the nodule. At this time decision was made to use the BARD Marquee device. BARD Marquee 14G cannula with introducer ([id number] was inserted through the incision and advanced under the ultrasound guidance to position immediately adjacent to the lesion and parallel to the implant to avoid injury. Next, the introducer was removed and BARD Marquee 14G biopsy device was places in the cannula. Pre-biopsy imaging, and post-biopsy imaging were captured. Two good core biopsies were taken at the nodule. Specimen was placed in formaldehyde, labeled with appropriate biopsy site and patients name, and sent to pathology for evaluation. Next, the biopsy device was withdrawn and a clip introducer was inserted into the biopsy site via the cannula. SHAPE 3 Hydromark clip was deployed under sonographic guidance. Post-clip placement image was captured. Manual pressure over the biopsy cavity and tract was held after the clip introducer was withdrawn. No bleeding was noted upon removal of the pressure. Post-biopsy mammogram of the right breast was obtained and showed clip in expected position. Postprocedural dressing was placed. Patient tolerated procedure well. Discharge instructions were discussed with the patient and the patient expressed understanding. RHEA PABLO DO Aug 26, 2020 20:06
== END ==
LOC: M WHCPRO 08:47
PROVIDERS: ATTEND Surgery
DX: N60.11 Diffuse cystic mastopathy of right breast (principal)

== ENCOUNTER → 2020-10-01 | Outpatient (CLI) | payer OTHER ==
[~2020-10-01] MED LIST changes: +PROHANCE 279.3MG/ML 15ML VIAL As Ordered ONE
--- NOTE | 2020-10-04 08:59 | REP ---
INDICATION: OTH ABN AND INCONCLUSIVE FINDINGS ON DX IMAGING OF BREAST. COMPARISON: Ultrasound 06/24/2020, mammogram 07/02/2020. TECHNIQUE: Three [place] MRI imaging was performed with a dedicated breast coil. Axial, coronal, and sagittal T1 and T2 weighted scans were obtained with and without fat saturation in the usual fashion. The study includes dynamically acquired post gadolinium-enhanced imaging with image subtraction. Maximum intensity projection and multi planar reformation imaging is included as well. This study is interpreted with the aid of ComQi, an FDA approved computer aided detection (CAD) software program, on a dedicated breast MRI workstation. The gadolinium enhancement dose is 11 mL of intravenous ProHance. FINDINGS: There is mild to moderate fibroglandular tissue symmetrically bilaterally. Bilateral breast implants are intact. No significant cystic changes seen in either breast. There is no axillary adenopathy. There is mild background parenchymal enhancement bilaterally. There is a subcentimeter intramammary lymph node in the upper inner left breast. There is a biopsy clip in the medial right breast status post negative ultrasound-guided biopsy in this region. There is no suspicious enhancing mass or morphologic abnormality bilaterally. IMPRESSION: BI-RADS category 2 benign bilateral breast MRI. Bilateral breast implants are intact. Biopsy clip in the medial right breast with no abnormal enhancement in this region. Intramammary lymph node upper inner left breast. No suspicious enhancing mass or morphologic abnormality. <Electronically signed by Nathan Sousa > 10/04/20 0846
== END ==
LOC: M RAD 16:07
PROVIDERS: ATTEND Surgery
DX: R92.8 Other abnormal and inconclusive findings on diagnostic imaging of breast (principal)
CPT/HCPCS: A9576; C8908

== ENCOUNTER → 2021-12-16 | Outpatient (CLI) | payer OTHER ==
[~2021-12-16] MED LIST changes: -PROHANCE 279.3MG/ML 15ML VIAL As Ordered ONE
== END ==
LOC: M WHC 12:39
PROVIDERS: ATTEND Nurse Practitioner Women's Health
DX: R92.8 Other abnormal and inconclusive findings on diagnostic imaging of breast (principal)

== ENCOUNTER → 2022-06-26 | Outpatient (CLI) | payer OTHER | LOC: M WHC 13:22 | PROVIDERS: ATTEND Nurse Practitioner Women's Health | DX: R92.8 Other abnormal and inconclusive findings on diagnostic imaging of breast (principal) ==

== ENCOUNTER → 2022-08-29 | Outpatient (REF) | payer OTHER ==
[2022-08-29 17:47] LABS: ALBUMIN 3.8 G/DL (3.2-5.2); ALKALINE PHOSPHATASE 63 U/L (46-116); ALT/SGPT 24 U/L (7.0-40); AST/SGOT 25 U/L (<34); BILIRUBIN,TOTAL 0.2 MG/DL (0.3-1.2); BLOOD UREA NITROGEN 20 MG/DL (9-23); CALCIUM LEVEL 8.3 MG/DL (8.5-10.1); CARBON DIOXIDE LEVEL 25 MMOL/L (20-31); CHLORIDE LEVEL 105 MMOL/L (98-107); CHOLESTEROL LEVEL 204 MG/DL (<200); CHOLESTEROL RISK RATIO 4.45 (<5); GLOMERULAR FILTRATION RATE > 60.0 (>58); GLUCOSE, FASTING 107 MG/DL (60-100); HDL CHOLESTEROL 45.8 MG/DL (>40); LDL CHOLESTEROL 102.2 MG/DL (<100); NON-HDL-C 158.2 MG/DL; SODIUM LEVEL 138 MMOL/L (136-145); THYROID STIMULATING HORMONE 2.606 uIU/ML (0.55-4.78); TOTAL PROTEIN 6.5 G/DL (5.7-8.2); TRIGLYCERIDES LEVEL 280 MG/DL (<150)
== END ==
LOC: M LAB REF 12:12
PROVIDERS: ATTEND Physician Assistant
DX: E78.5 Hyperlipidemia, unspecified (principal); F41.9 Anxiety disorder, unspecified; Z11.59 Encounter for screening for other viral diseases

== ENCOUNTER → 2022-09-25 | Outpatient (REF) | payer OTHER | LOC: M SFHCDERM 14:55 | PROVIDERS: ATTEND Nurse Practitioner Family | DX: L72.9 Follicular cyst of the skin and subcutaneous tissue, unspecified (principal) ==

== ENCOUNTER → 2023-01-08 | Outpatient (REF) | payer OTHER ==
[~2023-01-08] MED LIST changes: +DICY-61 PO; -DICY10CA13 PO
== END ==
LOC: M SFHCDERM 14:10
PROVIDERS: ATTEND Nurse Practitioner Family
DX: L73.2 Hidradenitis suppurativa (principal)

== ENCOUNTER → 2023-01-31 | Outpatient (REF) | payer OTHER ==
[2023-01-31 13:48] LABS: CALCIUM LEVEL 7.9 MG/DL (8.5-10.1)
[2023-01-31 13:53] LABS: TOTAL 25(OH) VITAMIN D 36.5 NG/ML (20.0-100.0)
== END ==
LOC: M LAB REF 12:31
PROVIDERS: ATTEND Physician Assistant
DX: E83.51 Hypocalcemia (principal)

== ENCOUNTER → 2023-03-19 | Outpatient (CLI) | payer OTHER | LOC: M WHC 10:49 | PROVIDERS: ATTEND Nurse Practitioner Family | DX: Z12.31 Encounter for screening mammogram for malignant neoplasm of breast (principal) ==

== ENCOUNTER → 2023-05-10 | Outpatient (REF) | payer OTHER ==
[2023-05-10 19:10] LABS: ALBUMIN 3.6 G/DL (3.2-5.2); ALKALINE PHOSPHATASE 52 U/L (46-116); ALT/SGPT 18 U/L (7.0-40); AST/SGOT 17 U/L (<34); BILIRUBIN,TOTAL 0.3 MG/DL (0.3-1.2); BLOOD UREA NITROGEN 16 MG/DL (9-23); CALCIUM LEVEL 8.8 MG/DL (8.5-10.1); CARBON DIOXIDE LEVEL 25 MMOL/L (20-31); CHLORIDE LEVEL 107 MMOL/L (98-107); CHOLESTEROL LEVEL 193 MG/DL (<200); CHOLESTEROL RISK RATIO 3.89 (<5); CREATININE FOR GFR 0.73 MG/DL (0.55-1.30); GLOMERULAR FILTRATION RATE > 60.0 (>58); GLUCOSE, FASTING 122 MG/DL (60-100); HDL CHOLESTEROL 49.6 MG/DL (>40); LDL CHOLESTEROL 123.4 MG/DL (<100); MAGNESIUM LEVEL 1.8 MG/DL (1.8-2.4); NON-HDL-C 143.4 MG/DL; PHOSPHORUS LEVEL 2.5 MG/DL (2.5-4.9); POTASSIUM SERUM 4.3 MMOL/L (3.5-5.1); SODIUM LEVEL 139 MMOL/L (136-145); TOTAL PROTEIN 6.3 G/DL (5.7-8.2); TRIGLYCERIDES LEVEL 100 MG/DL (<150)
[2023-05-10 19:13] LABS: TOTAL 25(OH) VITAMIN D 26.8 NG/ML (20.0-100.0)
[2023-05-10 19:14] LABS: PTH INTACT 17.3 PG/ML (18.5-88.0)
== END ==
LOC: M LAB REF 17:49
PROVIDERS: ATTEND Nurse Practitioner Family
DX: E83.51 Hypocalcemia (principal)

== ENCOUNTER → 2023-05-11 | Outpatient (REF) | payer MEDICAID, OTHER, SELFPAY | LOC: M LAB REF 14:29 | PROVIDERS: ATTEND Nurse Practitioner Family | DX: E83.51 Hypocalcemia (principal) ==

== ENCOUNTER → 2023-06-29 | Outpatient (REF) | payer OTHER | LOC: M SFHCWAGY 12:53 | PROVIDERS: ATTEND Nurse Practitioner Family | DX: Z12.4 Encounter for screening for malignant neoplasm of cervix (principal) ==

== ENCOUNTER → 2023-07-27 | Outpatient (CLI) | payer OTHER ==
[2023-07-27 18:16] LABS: PTH INTACT 15.3 PG/ML (18.5-88.0)
[2023-07-27 18:20] LABS: TOTAL 25(OH) VITAMIN D 48.8 NG/ML (20.0-100.0)
== END ==
LOC: M WUC 13:30
PROVIDERS: ATTEND Nurse Practitioner Family
DX: E83.51 Hypocalcemia (principal)

== ENCOUNTER → 2023-08-14 | Outpatient (REF) | payer OTHER ==
[2023-08-14 18:54] LABS: BASO # 0.1 10^3/uL (0.0-0.2); BASO % 0.8 % (0.0-1.0); EOS # 0.2 10^3/uL (0.0-0.5); EOS % 1.9 % (0.0-3.0); HEMATOCRIT 41.1 % (36.0-47.0); LYMPH # 2.6 10^3/uL (1.5-5.0); LYMPH % 27.8 % (24.0-44.0); MEAN CORPUSCULAR HEMOGLOBIN 32.3 pg (27.0-33.0); MEAN CORPUSCULAR HGB CONC 34.1 g/dl (32.0-36.5); MEAN CORPUSCULAR VOLUME 94.7 fl (80.0-96.0); MONO # 1.2 10^3/uL (0.0-0.8); MONO % 12.4 % (2.0-8.0); NEUTROPHILS # 5.1 10^3/uL (1.5-8.5); NEUTROPHILS % 53.7 % (36.0-66.0); PLATELET COUNT, AUTOMATED 302 10^3/uL (150-450); RED BLOOD COUNT 4.34 10^6/uL (4.00-5.40); WHITE BLOOD COUNT 9.5 10^3/uL (4.0-10.0)
[2023-08-14 19:17] LABS: HEMOGLOBIN A1c 5.2 % (4.0-6.0)
[2023-08-14 19:20] LABS: FOLATE > 24.0 NG/ML (>5.4)
[2023-08-14 19:21] LABS: BLOOD UREA NITROGEN 16 MG/DL (9-23); CALCIUM LEVEL 8.6 MG/DL (8.5-10.1); CARBON DIOXIDE LEVEL 26 MMOL/L (20-31); CHLORIDE LEVEL 107 MMOL/L (98-107); CREATININE FOR GFR 0.82 MG/DL (0.55-1.30); GLOMERULAR FILTRATION RATE > 60.0 (>58); GLUCOSE, FASTING 119 MG/DL (60-100); POTASSIUM SERUM 4.3 MMOL/L (3.5-5.1); SODIUM LEVEL 138 MMOL/L (136-145)
[2023-08-14 19:22] LABS: VITAMIN B12 LEVEL 382 PG/ML (211-911)
== END ==
LOC: M LAB REF 16:38
PROVIDERS: ATTEND Physician Assistant
DX: R73.9 Hyperglycemia, unspecified (principal); R63.0 Anorexia

== ENCOUNTER → 2023-08-17 | Outpatient (CLI) | payer OTHER ==
[2023-08-17 14:03] LABS: BASO % 0.5 % (0.0-1.0); EOS % 0.5 % (0.0-3.0); HEMATOCRIT 39.7 % (36.0-47.0); HEMOGLOBIN 13.4 g/dl (12.0-15.5); LYMPH # 1.6 10^3/uL (1.5-5.0); LYMPH % 25.9 % (24.0-44.0); MEAN CORPUSCULAR HGB CONC 33.8 g/dl (32.0-36.5); MEAN CORPUSCULAR VOLUME 94.7 fl (80.0-96.0); MONO # 1.1 10^3/uL (0.0-0.8); NEUTROPHILS # 3.5 10^3/uL (1.5-8.5); NEUTROPHILS % 55.8 % (36.0-66.0); PLATELET COUNT, AUTOMATED 281 10^3/uL (150-450); RED BLOOD COUNT 4.19 10^6/uL (4.00-5.40); WHITE BLOOD COUNT 6.3 10^3/uL (4.0-10.0)
[2023-08-17 14:39] LABS: ALBUMIN 3.6 G/DL (3.2-5.2); ALKALINE PHOSPHATASE 71 U/L (46-116); ALT/SGPT 24 U/L (7.0-40); AST/SGOT 24 U/L (<34); BILIRUBIN,TOTAL < 0.2 MG/DL (0.3-1.2); BLOOD UREA NITROGEN 13 MG/DL (9-23); CALCIUM LEVEL 8.5 MG/DL (8.5-10.1); CARBON DIOXIDE LEVEL 28 MMOL/L (20-31); CHLORIDE LEVEL 103 MMOL/L (98-107); CREATININE FOR GFR 1.08 MG/DL (0.55-1.30); GLOMERULAR FILTRATION RATE 57.4 (>58); GLUCOSE, FASTING 116 MG/DL (60-100); POTASSIUM SERUM 3.8 MMOL/L (3.5-5.1); SODIUM LEVEL 135 MMOL/L (136-145); TOTAL PROTEIN 6.7 G/DL (5.7-8.2)
[2023-08-17 15:07] LABS: HIV 1&2 SCREEN NEGATIVE (NEGATIVE)
[2023-08-17 15:14] LABS: HEPATITIS B CORE ANTIBODY IGM NEGATIVE (NEGATIVE); HEPATITIS C VIRUS ABY INDEX < 0.02 INDEX (<0.8)
== END ==
LOC: M WUC 12:06
PROVIDERS: ATTEND Nurse Practitioner Family
DX: L72.9 Follicular cyst of the skin and subcutaneous tissue, unspecified (principal); L73.2 Hidradenitis suppurativa

== ENCOUNTER → 2023-09-28 | Outpatient (REF) | payer OTHER | LOC: M LAB REF 17:17 | PROVIDERS: ATTEND Nurse Practitioner Family | DX: R59.0 Localized enlarged lymph nodes (principal) ==

== ENCOUNTER → 2024-02-12 | Outpatient (REF) | payer OTHER ==
[2024-02-12 19:41] LABS: TOTAL IRON BINDING CAPACITY 301 UG/DL (250-425)
[2024-02-12 19:42] LABS: ALBUMIN 3.9 G/DL (3.2-5.2); ALKALINE PHOSPHATASE 57 U/L (46-116); ALT/SGPT 21 U/L (7.0-40); AST/SGOT 17 U/L (<34); BILIRUBIN,TOTAL 0.2 MG/DL (0.3-1.2); BLOOD UREA NITROGEN 23 MG/DL (9-23); CALCIUM LEVEL 9.2 MG/DL (8.5-10.1); CARBON DIOXIDE LEVEL 26 MMOL/L (20-31); CHLORIDE LEVEL 110 MMOL/L (98-107); CHOLESTEROL LEVEL 260 MG/DL (<200); CHOLESTEROL RISK RATIO 6.28 (<5); CREATININE FOR GFR 0.86 MG/DL (0.55-1.30); GLOMERULAR FILTRATION RATE > 60.0 (>58); GLUCOSE, FASTING 108 MG/DL (60-100); HDL CHOLESTEROL 41.4 MG/DL (>40); LDL CHOLESTEROL 176.4 MG/DL (<100); NON-HDL-C 218.6 MG/DL; POTASSIUM SERUM 3.7 MMOL/L (3.5-5.1); SODIUM LEVEL 140 MMOL/L (136-145); TOTAL PROTEIN 6.9 G/DL (5.7-8.2); TRIGLYCERIDES LEVEL 211 MG/DL (<150)
[2024-02-12 19:43] LABS: IRON (FE) 72 UG/DL (50-170); PERCENT SATURATION 23.9 % (13.2-45.0)
[2024-02-12 19:44] LABS: FERRITIN 108.7 NG/ML (7.3-270.7)
[2024-02-12 19:45] LABS: BASO % 0.7 % (0.0-1.0); EOS # 0.2 10^3/uL (0.0-0.5); EOS % 2.5 % (0.0-3.0); FOLATE 19.53 NG/ML (>5.4); HEMATOCRIT 40.9 % (36.0-47.0); HEMOGLOBIN 13.7 g/dl (12.0-15.5); LYMPH # 2.4 10^3/uL (1.5-5.0); LYMPH % 40.1 % (24.0-44.0); MEAN CORPUSCULAR HEMOGLOBIN 31.9 pg (27.0-33.0); MEAN CORPUSCULAR HGB CONC 33.5 g/dl (32.0-36.5); MEAN CORPUSCULAR VOLUME 95.1 fl (80.0-96.0); MONO # 0.7 10^3/uL (0.0-0.8); MONO % 12.2 % (2.0-8.0); NEUTROPHILS # 2.7 10^3/uL (1.5-8.5); NEUTROPHILS % 44.2 % (36.0-66.0); PLATELET COUNT, AUTOMATED 315 10^3/uL (150-450); WHITE BLOOD COUNT 6.1 10^3/uL (4.0-10.0)
[2024-02-12 19:46] LABS: VITAMIN B12 LEVEL 261 PG/ML (211-911)
== END ==
LOC: M LAB REF 16:39
PROVIDERS: ATTEND Physician Assistant
DX: E78.5 Hyperlipidemia, unspecified (principal); R63.0 Anorexia

== ENCOUNTER → 2024-07-28 | Outpatient (CLI) | payer OTHER ==
[~2024-07-28] MED LIST changes: +GABA-1172 PO; -GABA-282 PO
== END ==
LOC: M WHC 16:26
PROVIDERS: ATTEND Physician Assistant
DX: Z12.31 Encounter for screening mammogram for malignant neoplasm of breast (principal)

== ENCOUNTER → 2024-08-05 | Outpatient (CLI) | payer OTHER ==
[2024-08-05 17:04] LABS: BASO % 0.5 % (0.0-1.0); EOS # 0.2 10^3/uL (0.0-0.5); EOS % 2.4 % (0.0-3.0); HEMATOCRIT 39.5 % (36.0-47.0); HEMOGLOBIN 13.2 g/dl (12.0-15.5); LYMPH # 2.3 10^3/uL (1.5-5.0); LYMPH % 36.9 % (24.0-44.0); MEAN CORPUSCULAR HEMOGLOBIN 32.7 pg (27.0-33.0); MEAN CORPUSCULAR HGB CONC 33.4 g/dl (32.0-36.5); MEAN CORPUSCULAR VOLUME 97.8 fl (80.0-96.0); MONO # 0.7 10^3/uL (0.0-0.8); MONO % 10.5 % (2.0-8.0); NEUTROPHILS # 3.1 10^3/uL (1.5-8.5); NEUTROPHILS % 49.5 % (36.0-66.0); PLATELET COUNT, AUTOMATED 339 10^3/uL (150-450); RED BLOOD COUNT 4.04 10^6/uL (4.00-5.40); WHITE BLOOD COUNT 6.2 10^3/uL (4.0-10.0)
[2024-08-05 17:29] LABS: ALBUMIN 3.6 G/DL (3.2-5.2); ALKALINE PHOSPHATASE 60 U/L (35-104); ALT/SGPT 31 U/L (7.0-40); AST/SGOT 31 U/L (<34); BILIRUBIN,TOTAL < 0.2 MG/DL (0.3-1.2); BLOOD UREA NITROGEN 24 MG/DL (9-23); CALCIUM LEVEL 8.5 MG/DL (8.5-10.1); CARBON DIOXIDE LEVEL 24 MMOL/L (20-31); CHLORIDE LEVEL 111 MMOL/L (98-107); CHOLESTEROL LEVEL 209 MG/DL (<200); CHOLESTEROL RISK RATIO 4.13 (<5); GLOMERULAR FILTRATION RATE > 60.0 (>51); GLUCOSE, FASTING 116 MG/DL (60-100); HDL CHOLESTEROL 50.6 MG/DL (>40); LDL CHOLESTEROL 116.4 MG/DL (<100); NON-HDL-C 158.4 MG/DL; POTASSIUM SERUM 4.2 MMOL/L (3.5-5.1); SODIUM LEVEL 142 MMOL/L (136-145); THYROID STIMULATING HORMONE 3.903 uIU/ML (0.55-4.78); TOTAL PROTEIN 6.5 G/DL (5.7-8.2); TRIGLYCERIDES LEVEL 210 MG/DL (<150); VITAMIN B12 LEVEL 337 PG/ML (211-911)
[2024-08-05 17:31] LABS: FREE THYROXINE INDEX 3.2 % (1.3-4.8); T UPTAKE 35.7 % (22.5-37.0)
[2024-08-05 17:36] LABS: FOLATE > 24.0 NG/ML (>5.4); HEMOGLOBIN A1c 5.2 % (4.0-6.0)
== END ==
LOC: M WUC 08:18
PROVIDERS: ATTEND Nurse Practitioner Psychiatric/Mental Health
DX: F32.A Depression, unspecified (principal); F12.10 Cannabis abuse, uncomplicated; F50.9 Eating disorder, unspecified; F41.1 Generalized anxiety disorder; F32.9 Major depressive disorder, single episode, unspecified

== ENCOUNTER → 2024-09-03 | Outpatient (CLI) | payer OTHER ==
[2024-09-03 13:10] LABS: CALCIUM LEVEL 9.5 MG/DL (8.5-10.1); CREATININE FOR GFR 0.9 MG/DL (0.55-1.30); GLOMERULAR FILTRATION RATE 77.9 (>51); MAGNESIUM LEVEL 1.7 MG/DL (1.8-2.4); PHOSPHORUS LEVEL 3.6 MG/DL (2.5-4.9); POTASSIUM SERUM 4.4 MMOL/L (3.5-5.1)
[2024-09-03 13:12] LABS: TOTAL 25(OH) VITAMIN D 60.5 NG/ML (20.0-100.0)
== END ==
LOC: M WUC 10:34
PROVIDERS: ATTEND Nurse Practitioner Family
DX: E83.51 Hypocalcemia (principal)